=== PATIENT | female | born 1980 | race African-American/Black ===

== ENCOUNTER 2019-02-01 09:53 | Emergency (ER) | payer MEDICAID ==
[~2019-02-01] VITALS: Ht 160 cm; Wt 75.0 kg
[2019-02-01 13:10] LABS: BASOPHILS % 0.9 % (0.0-2.0); EOSINOPHILS % 2.8 % (0.0-5.0); HEMATOCRIT. 29.1 % (36.0-48.0); HEMOGLOBIN. 9.8 g/dL (12.0-16.0); LYMPHOCYTES % 38.5 % (20.0-50.0); MEAN CORPUSCULAR HEMOGLOBIN 26.2 pg (28.0-32.0); MEAN CORPUSCULAR VOLUME 78.1 fL (81.0-99.0); MONOCYTES % 11.2 % (2.0-8.0); NEUTROPHILS % 46.6 % (40.0-76.0); PLATELET 287 x1000/uL (130-400); RED BLOOD CELL COUNT 3.72 mill/uL (4.2-5.4); RED CELL DISTRIBUTION WIDTH 13.6 % (11.6-14.6)
[2019-02-01 13:11] LABS: CLARITY URINE CLOUDY (CLEAR); COLOR URINE YELLOW (YELLOW); KETONES URINE NEGATIVE (NEGATIVE); LEUKOCYTE ESTERASE URINE 3+ (NEGATIVE); NITRITE URINE NEGATIVE (NEGATIVE); OCCULT BLOOD URINE 2+ (NEGATIVE); PROTEIN URINE TRACE (NEGATIVE); SPECIFIC GRAVITY URINE 1.016 (1.005-1.030); UROBILINOGEN URINE 0.2 E.U./dL (0.2-1.0)
[2019-02-01 13:16] LABS: CHLORIDE 104 mEq/L (98-107)
[2019-02-01 13:40] LABS: B-HCG QUANTITATIVE 965 mIU/mL (<3)
[2019-02-01 15:54] VITALS: BP 112/56
== END 2019-02-01 15:56 | disposition home or self-care (01) ==
LOC: ER 09:53
DX: O20.0 Threatened abortion (principal); O23.40 Unspecified infection of urinary tract in pregnancy, unspecified trimester; O99.019 Anemia complicating pregnancy, unspecified trimester; O26.899 Other specified pregnancy related conditions, unspecified trimester; Z98.890 Other specified postprocedural states; D72.819 Decreased white blood cell count, unspecified; R79.89 Other specified abnormal findings of blood chemistry; Z3A.00 Weeks of gestation of pregnancy not specified
CPT/HCPCS: 36415; 76801; 81025; 84702; 86850; 86900; 87077; 87186; 99284

== ENCOUNTER 2021-05-07 05:42 | Emergency (ER) | payer MEDICAID ==
[~2021-05-07] VITALS: Ht 157.5 cm; Wt 89.0 kg
[2021-05-07] MEDS ORDERED: ACETAMINOPHEN WITH CODEINE 300/30MG TABLET PO ONE (06:15)
[2021-05-07 07:30] VITALS: BP 135/78
[2021-05-07] MEDS ORDERED: T3 PO (08:07)
== END 2021-05-07 08:16 | disposition home or self-care (01) ==
LOC: ER 05:42
DX: M25.511 Pain in right shoulder (principal)
CPT/HCPCS: 73030; 81025; 99283; Z7610; A4565

== ENCOUNTER 2021-05-09 01:55 | Emergency (ER) | payer MEDICAID ==
[~2021-05-09] VITALS: Ht 157.5 cm; Wt 65.0 kg
[~2021-05-09 01:55] MED LIST: T3 PO
[2021-05-09] MEDS ORDERED: HYDROCODONE/ACETAMINOPHEN 5/325MG TABLET PO STA (02:44)
[2021-05-09] MEDS ORDERED: KETOROLAC 60MG/2ML VIAL IM STA (02:44)
[2021-05-09] MEDS ORDERED: NAPR-681 PO (03:55)
[2021-05-09 04:06] VITALS: BP 128/77
== END 2021-05-09 04:06 | disposition home or self-care (01) ==
LOC: ER 01:55
DX: M25.511 Pain in right shoulder (principal)
CPT/HCPCS: 96372; 99283; J1885